=== PATIENT | male | born 1975 | race Caucasian/White ===

== ENCOUNTER 2018-03-29 18:55 | Emergency (ER) | payer SELFPAY ==
[~2018-03-29] VITALS: Ht 182.8 cm; Wt 77.1 kg
[2018-03-29] MEDS ORDERED: AMINOPHYLLIN200 MG PO (19:20)
== END 2018-03-29 19:55 | disposition home or self-care (01) ==
LOC: ED 18:55
DX: H66.91 Otitis media, unspecified, right ear (principal); I10 Essential (primary) hypertension; F17.200 Nicotine dependence, unspecified, uncomplicated